=== PATIENT | female | born 1950 | race Caucasian/White ===

== ENCOUNTER 2019-10-01 20:03 | Emergency (ER) | payer MEDICARE ==
[~2019-10-01] VITALS: Ht 172.7 cm; Wt 77.0 kg
[2019-10-01] MEDS ORDERED: ACETAMINOPHEN 325MG TABLET PO STA (22:00)
[2019-10-01 22:53] LABS: BASOPHILS % 0.9 % (0.0-2.0); EOSINOPHILS % 0.1 % (0.0-5.0); HEMATOCRIT. 35.2 % (36.0-48.0); HEMOGLOBIN. 11.9 g/dL (12.0-16.0); LYMPHOCYTES % 20.1 % (20.0-50.0); MEAN CORPUSCULAR VOLUME 88.5 fL (81.0-99.0); MEAN PLATELET VOLUME 8.5 fl (7.4-10.4); MONOCYTES % 8.4 % (2.0-8.0); NEUTROPHILS % 70.5 % (40.0-76.0); PLATELET 201 x1000/uL (130-400); RED BLOOD CELL COUNT 3.98 mill/uL (4.2-5.4); RED CELL DISTRIBUTION WIDTH 13.4 % (11.6-14.6)
[2019-10-01 23:01] LABS: CHLORIDE 104 mEq/L (98-107)
[2019-10-02] MEDS ORDERED: HYDROCODONE/ACETAMINOPHEN 5/325MG TABLET PO ONE (01:45)
[2019-10-02] MEDS ORDERED: PANTOPRAZOLE 40MG DR TABLET PO ONE (12:00)
[2019-10-02] MEDS ORDERED: ENOXAPARIN 40MG/0.4ML SYR SUBCUT ONE (12:00)
[2019-10-02 13:31] VITALS: BP 120/60
== END 2019-10-02 14:09 | disposition home or self-care (01) ==
LOC: ER 20:03
DX: M25.551 Pain in right hip (principal); Z96.642 Presence of left artificial hip joint
CPT/HCPCS: 36415; 80053; 85025; 96372; 99284; J1650